=== PATIENT | female | born 2000 | race Two or more races ===

== ENCOUNTER → 2023-01-18 | Emergency (ER) | payer OTHER ==
[~2023-01-18] VITALS: Ht 162.6 cm; Wt 51.7 kg
== END | disposition home or self-care (01) ==
LOC: ER 12:16
DX: R53.83 Other fatigue (principal); R11.0 Nausea

== ENCOUNTER 2023-02-04 13:09 | Emergency (ER) | payer OTHER ==
[~2023-02-04] VITALS: Ht 165.1 cm; Wt 65.3 kg
== END 2023-02-04 18:20 | disposition home or self-care (01) ==
LOC: ER 13:09 → EMR PED 13:17 → ER 13:17
DX: R51.9 Headache, unspecified (principal); R42 Dizziness and giddiness